=== PATIENT | female | born 2000 | race Caucasian/White ===

== ENCOUNTER 2021-09-11 13:20 | Observation (INO) ==
[2021-09-11 15:00] LABS: Basophils # (auto) 0.02 K/uL (0-0.2); Basophils % (auto) 0.4 %; Eosinophils # (auto) 0.11 K/uL (0-0.5); Eosinophils % (auto) 2.3 %; Hematocrit (blood only) 39.2 % (37-47); Hemoglobin 12.7 g/dL (12.0-16.0); Lymphocytes # (auto) 2.31 K/uL (1.2-3.4); Mean Corpuscular Hgb Conc 32.4 g/dL (32-36); Mean Corpuscular Volume 92.7 fL (80-100); Mean Platelet Volume 9.5 fL (7.4-10.4); Monocytes # (auto) 0.41 K/uL (0.11-0.59); Monocytes % (auto) 8.5 %; Neutrophils # (auto) 1.96 K/uL (1.4-6.5); Neutrophils % (auto) 40.8 %; Platelet Count 206 K/uL (130-400); RDW Coefficient of Variation 14.1 % (11.5-14.5); RDW Standard Deviation 47.4 fL (36.4-46.3); Red Blood Count 4.23 M/uL (4.2-5.4); White Blood Count 4.81 K/uL (4.8-10.8)
[2021-09-11 15:19] LABS: Alanine Aminotransferase 27 U/L (7-52); Albumin Globulin Ratio 1.6 (0.9-2); Albumin Level 4.6 gm/dl (3.4-5.0); Alkaline Phosphatase 38 U/L (34-104); Anion Gap 7 (3-11); Aspartate Aminotransferase 32 U/L (13-39); BUN Creatinine Ratio 17.7 (10-20); Bilirubin,Total 0.7 mg/dl (0.2-1.0); Blood Urea Nitrogen 11 mg/dl (6-23); Calcium 9.8 mg/dl (8.5-10.1); Carbon Dioxide 24 mmol/L (21-32); Chloride 108 mmol/L (98-107); Creatinine Clr Calc Pharmacy 133.9 ml/min; Est GFR (African American) > 150.0 ml/min; Est GFR (Non-African American) 129.8 ml/min; Globulin 2.9 gm/dl (2.5-4.0); Glucose 86 mg/dl (70-99(Fasting)); Potassium 4.6 mmol/L (3.5-5.1); Sodium 139 mmol/L (136-145); Total Protein 7.5 gm/dl (6.0-8.3)
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
--- NOTE | 2021-09-11 15:49 | Electrocardiogram Report ---
Test Reason : Blood Pressure : / mmHG Vent. Rate : 038 BPM Atrial Rate : 053 BPM P-R Int : 000 ms QRS Dur : 090 ms QT Int : 496 ms P-R-T Axes : 059 089 059 degrees QTc Int : 394 ms Junctional bradycardia Early repolarization Abnormal ECG No previous ECGs available Confirmed by Brian Lopez ([id number]) on 09/11/2021 3:49:11 PM Referred By: REFERRED SELF Confirmed By:Brian Lopez
[2021-09-11 18:07] LABS: Appearance Urine Clear (Clear); Bilirubin Urine Negative (Negative); Blood Urine Negative (Negative); Color Urine Yellow; Glucose Urine UA Negative (Negative); Ketones Urine Negative (Negative); Leukocyte Esterase Urine Negative (Negative); Nitrite Urine Negative (Negative); Protein Urine Negative (Negative); Urobilinogen Urine Negative (Negative)
--- NOTE | 2021-09-11 18:17 | XCELERA ---
[id number]
[2021-09-11 18:23] LABS: Lyme Ab IgG w/WB Rflx Negative (Negative); Lyme Ab IgM w/WB Rflx Negative (Negative)
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
[2021-09-11 20:04] LABS: Amphetamines+Metham, Urine Neg (Neg); Barbiturates, Urine Neg (Neg); Benzodiazepine, Urine Neg (Neg); Cocaine, Urine Neg (Neg); MDMA (Ecstacy), Urine Neg (Neg); Methadone, Urine Neg (Neg); Opiate, Urine Neg (Neg); Phencyclidine, Urine Neg (Neg)
--- NOTE | 2021-09-11 20:23 | XRay Report ---
XR chest 2V PA/lateral CLINICAL HISTORY: bradycardia, near-syncope TECHNIQUE: AP and lateral frontal radiograph of the chest was obtained. Comparison: None available at the time of this dictation. FINDINGS: No lines and tubes are seen. The cardiomediastinal silhouette is normal. The lungs are clear. No evid ence of pleural effusion or pneumothorax. IMPRESSION: No acute chest disease. ACT 112: Negative or not required by law. Electronically signed by: Jose Chung M.D. 09/11/2021 8:21 PM
[2021-09-11 21:25] LABS: Pregnancy Test, Urine Negative (Negative)
[2021-09-11] MEDS ORDERED: ONDANSETRON INJ 2 MG/ML 2 ML VIAL IV PRN (23:55)
[2021-09-11] MEDS ORDERED: SODIUM CHLORIDE 0.9% 1000ML 1,000 ML IV SCH (23:55)
[2021-09-11] MEDS ORDERED: ACETAMINOPHEN 325 MG TAB PO PRN (23:55)
[2021-09-12] MEDS: DOXYCYCLINE HYCLATE 100 MG CAP PO SCH ×2 (03:09→10:02)
[2021-09-12 06:30] LABS: Anion Gap 6 (3-11); BUN Creatinine Ratio 24.1 (10-20); Blood Urea Nitrogen 14 mg/dl (6-23); Calcium 8.7 mg/dl (8.5-10.1); Carbon Dioxide 24 mmol/L (21-32); Chloride 108 mmol/L (98-107); Creatinine Clr Calc Pharmacy 143.1 ml/min; Est GFR (African American) > 150.0 ml/min; Est GFR (Non-African American) 132.7 ml/min; Glucose 81 mg/dl (70-99(Fasting)); Potassium 4.1 mmol/L (3.5-5.1); Sodium 138 mmol/L (136-145)
[2021-09-12] MEDS ORDERED: ADVANCED PROBIOTIC 1250 MG CAPSULE PO SCH (09:00)
[2021-09-12] MEDS ORDERED: CHOLECALCIFEROL 1,000 UNITS 25 MCG TAB PO SCH (09:00)
[2021-09-12] MEDS ORDERED: MAGNESIUM OXIDE 400 MG TAB PO SCH (09:00)
[2021-09-12] MEDS ORDERED: FERROUS SULFATE 325 MG TAB PO SCH (09:00)
[2021-09-12] MEDS ORDERED: VITAMIN B COMPLEX TAB PO SCH (09:00)
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
--- NOTE | 2021-09-13 17:44 | Electrocardiogram Report ---
Test Reason : Blood Pressure : / mmHG Vent. Rate : 038 BPM Atrial Rate : 038 BPM P-R Int : 000 ms QRS Dur : 084 ms QT Int : 478 ms P-R-T Axes : 000 096 068 degrees QTc Int : 380 ms Junctional bradycardia with isorhythmic sinus bradycardia Rightward axis Abnormal ECG When compared with ECG of 11-SEP-2021 14:42, No significant change was found Confirmed by Julian Ramírez ([id number]) on 09/13/2021 5:44:20 PM Referred By: REFERRED SELF Confirmed By:Julian Ramírez
--- NOTE | 2021-09-13 18:26 | Electrocardiogram Report ---
Test Reason : Blood Pressure : / mmHG Vent. Rate : 037 BPM Atrial Rate : 037 BPM P-R Int : 142 ms QRS Dur : 084 ms QT Int : 504 ms P-R-T Axes : 077 094 086 degrees QTc Int : 395 ms Marked sinus bradycardia Rightward axis Abnormal ECG When compared with ECG of 11-SEP-2021 17:03, (unconfirmed) Sinus rhythm has replaced Junctional rhythm Confirmed by Julian Ramírez ([id number]) on 09/13/2021 6:26:12 PM Referred By: REFERRED SELF Confirmed By:Julian Ramírez
== END 2021-09-12 13:21 | disposition home or self-care (01) ==
LOC: ED 13:20 → EDINP 13:20 → SUATTDRO 19:27 → EDINP 09-12 00:29